=== PATIENT | female | born 1950 | race Caucasian/White ===

== ENCOUNTER → 2023-03-22 13:02 | Outpatient (REF) | payer MEDICARE, OTHER, SELFPAY | LOC: RAD 13:02 | PROVIDERS: ATTENDING PHYSICIAN Internal Medicine; FAMILY PHYSICIAN Internal Medicine | DX: R22.1 Localized swelling, mass and lump, neck (principal) | CPT/HCPCS: 76536 ==

== ENCOUNTER → 2023-04-28 08:23 | Outpatient (REF) | payer MEDICARE, OTHER, SELFPAY ==
[2023-04-28 08:40] VITALS: BP 122/63; BP_SYST 77
== END ==
LOC: RADI 08:23
PROVIDERS: ATTENDING PHYSICIAN Internal Medicine
DX: E04.1 Nontoxic single thyroid nodule (principal)
CPT/HCPCS: 88173; 10005